=== PATIENT | male | born 1960 | race Caucasian/White ===

== ENCOUNTER 2025-03-28 11:18 | Emergency (ER) | payer MEDICARE, BC, SELFPAY ==
--- OUTSIDE RECORDS SUMMARY | 2025-03-28 11:20 | XMS_ITS | Clinical Summary ---
Author Organization [employer] [facility] Address [address] [place] [id number] Care Team Providers Care [employer]ing And St[employer] Supervisor Name Role Phone Juan Pollock MD Primary Care Provider Allergies Active Allergy Reactions Criticality Noted Date Comments Atorvastatin Other - Describe In Comment Field 10/19/2014 pain Lisinopril Other - Describe In Comment Field 11/21/2011 Increased creatinine and cough Pravastatin Other - Describe In Comment Field 11/16/2014 Pain, hyper Rosuvastatin Myalgia 09/11/2020 Medications aspirin enteric coated 81 mg tablet Take 1 tablet by mouth once daily with a meal. 0 08/24/19 14 Active cholecalciferol (VITAMIN D3) 1,000 unit tabletIndications: Vitamin D insufficiency TAKE ONE TABLET BY MOUTH EVERY DAY 90 Tablet 3 03/31/20 22 Active inhalational spacing deviceIndications: Bronchospasm For home use. 1 Each 02/22/20 25 Active amLODIPine (NORVASC) 10 mg tabletIndications: Essential hypertension Take 1 Tablet (10 mg) by mouth once daily. 90 Tablet 3 02/22/20 25 Active ezetimibe (ZETIA) 10 mg tabletIndications: Hyperlipidemia, unspecified hyperlipidemia type Take 1 Tablet (10 mg) by mouth once daily. 90 Tablet 3 02/22/20 25 Active hydroCHLOROthiazid e 25 mg tabletIndications: Essential hypertension Take 1 Tablet (25 mg) by mouth once daily. 90 Tablet 3 02/22/20 25 Active losartan (COZAAR) 100 mg tabletIndications: Benign essential HTN Take 1 Tablet (100 mg) by mouth once daily. 90 Tablet 3 02/22/20 25 Active fluticasone (50 mcg per actuation) nasal solution (FLONASE)Indicatio ns:Chronic allergic rhinitis Inhale 2 Sprays in both nostrils once daily. 16 g 3 02/22/20 25 Active albuterol HFA (PRO-AIR; VENTOLIN; PROVENTIL) 90 mcg/actuation inhalerIndications :Bronchospasm Inhale 1-2 Puffs by mouth every 4 hours if needed for Shortness Of Breath or Wheezing. 1 Each 1 03/21/20 25 Active polyethylene glycol-electrolyte (GOLYTELY) 236-22.74-6.74 -5.86 gram suspensionIndicati ons:Polyp of colon, unspecified part of colon, unspecified type Drink 6 liters the day before colonoscopy and 2 liters 6 hours before colonoscopy appointment 8000 mL 12/14/19 24 025 Discontin ued(*Medi cation adjustmen t) albuterol HFA (PRO-AIR; VENTOLIN; PROVENTIL) 90 mcg/actuation inhalerIndications :Bronchospasm Inhale 1-2 Puffs by mouth every 4 hours if needed for Shortness Of Breath or Wheezing. 1 Each 02/22/20 25 025 Discontin ued(Reord er (E-cancel not sent)) polyethylene glycol-electrolyte (GOLYTELY) 236-22.74-6.74 -5.86 gram suspensionIndicati ons:Encounter for screening colonoscopy Drink 6 liters (one bottle and one-half bottle) the day before the procedure and 2 liters (remaining one-half bottle) 6 hours prior to procedure 8000 mL 02/29/20 25 025 Discontin ued(*Med complete/ Regimen complete/ Level of care change) Active Problems Problem Noted Date Diagnosed Date Tobacco abuse 03/21/2025 Chronic kidney disease, unspecified 08/23/2013 Colon polyp 12/02/2011 Overview (03/12/2025): Colonoscopy 11/2011 polyp repeat in 5 years Colonoscopy 02/2018 polyps, repeat in 5 years Colonoscopy 02/2025 2-TA, repeat in 5 years Gallstones 10/24/2011 Obesity, unspecified 10/24/2011 Mixed hyperlipidemia 10/24/2011 Unspecified essential hypertension 10/24/2011 Resolved Problems Problem Noted Date Diagnosed Date Resolved Date Vitamin D deficiency 10/24/2011 018 Impaired fasting glucose 10/24/2011 Tobacco use disorder 09/23/2011 015 Encounters Date Type Department Care Team Description 03/28/2025 Nurse Triage [facility] [address] [place] [address] Juan Pollock MD Neurologic Problem 03/21/2025 3:45 PM CDT Office Visit [facility] [address] [place] [address] Juan Pollock MD Results (Discuss lab results ) 03/21/2025 Travel 03/08/2025 Orders Only [facility] [address] [place] [address] Juan Pollock MD 1 scan: (1-Ord) [facility] 03/08/2025 Lab Requisition [facility] [phone] Jah Perez MD 03/07/2025 1:29 PM CDT - 03/07/2025 11:59 PM CDT Hospital Encounter Jah Perez MD 03/07/2025 Orders Only [facility] [address] [facility] [address] [place] [address] Jah Perez MD <No scans attached> 03/07/2025 Surgery [facility] [address] [facility] [address] [place] [address] Jah Perez MD Colonoscopy 03/01/2025 Telephone [facility] [address] [place] [address] Juan Pollock MD Results 02/28/2025 Telephone [facility] [address] [place] [address] Jah Perez MD Appointment Reminder (Colonoscopy at [facility]) 02/27/2025 1:30 PM CDT Ancillary Procedure [facility] [address] [place] [address] 02/27/2025 Travel 02/22/2025 Orders Only [facility] [address] [place] [address] Juan Pollock MD <No scans attached> 02/21/2025 3:20 PM CDT [facility] [address] [facility] [address] Juan Pollock MD Medicare FIRST ANNUAL Visit (64 year old); Derm Problem (Spot by left elbow) 02/21/2025 Travel 02/11/2025 Refill [facility] [address] [place] [address] Juan Pollock MD Refill Request (Losartan) 01/27/2025 Refill [facility] [address] [place] [address] Juan Pollock MD Refill Request (Ezetimibe) from Last 3 Months Immunizations Immunization Administration Dates Next Due COVID-19 VACCINE SPIKEVAX (M ODERNA 50MCG/0.5ML) 12YO+ PFS 11/13/2023 COVID-19 vaccine (Pfizer-Bio NTech 30mcg/0.3mL) 12YO+ ALEJO-SUCROSE PF, MDV 12/09/2021 COVID-19 vaccine (Pfizer-Bio NTech 30mcg/0.3mL) PF, MDV 10/02/2020,09/11/2020 Influenza, IIV4 03/28/2021,03/23/2019,01/28/2018 Influenza, Inactivated IIV3 (Age 65+ Years) Preserv Free 02/21/2025 Pneumococcal Conj 20-valent (Prevnar 20) 024 Pneumococcal Poly,23-Valent (Pneumovax) 03/23/20 19 Td (Age >=7 Years) 08/22/2005 Tdap 12/17/2021,12/19/2011 Zoster (Shingrix-RZV, recombinant) 03/20/2022, Family History Medical History Relation Name Comments Diabetes Father Heart Disease Father around ag e 73. Cancer Maternal Uncle stomach cance r Diabetes Mother at 88. Heart Disease Neg. 1 No premature c ad Cancer-colon Neg. 2 Anesthesia Problem Neg. 3 Asthma Paternal Grandfather Cancer-prostate Paternal Grandfather poss ibly Relation Name Status Comments Father Maternal Uncle Mother Neg. 1 Neg. 2 Neg. 3 Paternal Grandfather Social History Tobacco Use Types Packs/Day Years Used Date Smoking Tobacco: Every Day Cigarettes 1 41.8 Started: 05/25/1983 Smokeless Tobacco: Current Chew Tobacco Cessation:Ready to Q uit: No; Counseling Given: No Alcohol Use Standard Drinks/Week Comments Yes 0 (1 standard drink = 0.6 oz pur e alcohol) rarely PHQ-2 Answer Date Recorded PHQ-2 TOTAL SCORE 1 02/21/2025 Social Connections Answer Date Recorded Do you often feel lonely or isolated from those around you? 0 02/21/2025 Alcohol Use Answer Date Recorded How often do you have a drink containing alcohol ? 1 03/21/2025 How many drinks containing a lcohol do you have on a typical day when you are drinking? 0 03/21/2025 How often do you have five or more drinks on one occasion? 0 03/21/2025 Financial Resource Strain Answer Date R ecorded Difficulty of Paying Living Expenses 3 02/21/2025 Difficulty of Paying Living Expenses Not on file 02/21/2025 Food Insecurity Answer Date Recorded Do you worry your food will run out before you are able to buy more? 1 02/21/2025 Transportation Needs Answer Date Record ed Does lack of transportation keep you from medica l appointments? 1 02/21/2025 Does lack of transportation keep you from work, meetings or getting things that you need? 1 02/21/2025 Housing Stability Answer Date Recorded What is your housing situation today? 1 02/21/2025 Utilities Answer Date Recorded Do you have trouble paying f or utilities (for example, heat, electricity, water, phone)? 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[employer] Gender Identity Not on file Sexual Orientation Not on file Obstetrics History Last Filed Vital Signs Vital Sign Reading Time Taken Comments Blood Pressure 122/65 03/21/2025 3:50 PM CDT Pulse 65 03/21/2025 3:50 PM CDT Temperature 37.1 C (98.7 F) 01/28/2018 3:44 PM CDT Respiratory Rate - - Oxygen Saturation 96% 03/21/2025 3:50 PM CDT Inhaled Oxygen Concentration - - Weight 104.1 kg (229 lb 6.4 oz) 03/21/2025 3:50 PM CDT Height 170.4 cm (5' 7.09) 02/21/2025 3:30 PM CD T Body Mass Index 35.84 02/21/2025 3:30 PM CDT Plan of Treatment Upcoming Encounters Date Type Department Care Team (Late st Contact Info) Description 03/30/2025 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 Appointment [facility] [address] [place] [address] Health Maintenance Due Date Last Done Comments RSV vaccine for adults or (1 - Risk 60-74 years 1-dose series) 2018 AAA screening age 65-74 11/20/2023 BMI (ht and wt on same day) for age 18+ 02/21/2026 02/21/2025, 11/13/2023, 12/09/2021, Additional history exists Depression screening for age 12+ 02/21/2026 02/21/2025, 08/14/2020, 03/24/2019, Additional history exists Medicare Wellness for age 65+ 02/22/2026 02/21/[address] (for lung CA) age 50-80 02/27/2026 02/27/2025 Lipids for age 45-75 02/21/2030 02/21/2025, 11/13/2023, 12/09/2021, Additional history exists Colonoscopy through age 75 03/07/203003/07, 03/19/2018, 03/19/2018, Additional history exists Tetanus booster 12/18/2031 12/17/2021, 11/23, 08/22/2005 Hepatitis C screening for age 18-79 Completed 10/18/2015 Zoster (shingles) series for age 50+ Completed 03/20/2022, 12/17/2021 Pneumococcal series for age 50+ Completed 11/13/2023, 03/23/2019 Influenza Vaccine Completed 02/21/2025, , 03/23/2019, Additional history exists Hepatitis B series for 19+ Aged Out N o longer eligible based on patient's age to complete this topic Procedures Procedure Name Priority Date/Time Associated Diagnosis Comments LAB TRACKING EVENT Routine 03/07/2025 2: 32 PM CDT PATH TISSUE EXAM Routine 03/07/2025 2:32 PM CDT COLONOSCOPY SCREENING Routine 03/07/2025 12:00 AM CDT Screening for colon cancer CT CHEST SCREENING LOW DOSE WO CONTRAST Routine 02/27/2025 1:20 PM CDT Personal history of nicotine dependence BASIC METABOLIC PANEL Routine 02/21/2025 4:47 PM CDT Controlled type 2 diabetes mellitus without complication, without long-term current use of insulin (HC) URINE ALBUMIN TO CREATININE RATIO, RANDOM Routine 02/21/2025 4:47 PM CDT Controlled type 2 diabetes mellitus without complication, without long-term current use of insulin (HC) HEMOGLOBIN A1C MONITORING (POCT) Routine 02/21/2025 4:47 PM CDT Controlled type 2 diabetes mellitus without complication, without long-term current use of insulin (HC) PSA TOTAL Routine 02/21/2025 4:47 PM CDT Prostate cancer screening LIPID PANEL W REFLEX MEASURED LDL Routine 02/21/2025 4:47 PM CDT Controlled type 2 diabetes mellitus without complication, without long-term current use of insulin (HC) ANTI HCV Routine 10/18/2015 9:01 AM CDT Need for hepatitis C screening test SURGICAL PROCEDURE (TYPE PROCEDURE DESCRIPTION BELOW) Encounter for screening colonoscopy from Last 3 Months or Most Recently Relevant to Health Maintenance Results * LAB TRACKING EVENT (03/07/2025 2:32 PM CDT) Other (Other) Client Collect / Unknown 03/07/2025 2:32 PM CDT 03/08/2025 6:27 PM CDT us Jah Perez MD LAB BILL ONLY Final Res ult [facility] [address] [place] [address], * PATH TISSUE EXAM (03/07/2025 2:32 PM CDT) Case Report Pathology Report Case: [id number] Authorizing Provider: Jah Perez MD Collected: 03/07/2025 1432 Ordering Location: [facility] Received: 03/09/2025 1924 Pathologist: Greg Melvin MD Specimens: A) - Cecal Polyp B) - Sigmoid Polyp 03/10/2025 2:34 PM CDT [facility] Final Diagnosis A) COLON, CECUM, POLYPECTOMY: 1. Tubular adenoma 2. Negative for high grade dysplasia 3. Per the colonoscopy report: a. Polyp size: 4 mm b. Resection: Complete c. Retrieval: Complete B) COLON, SIGMOID, POLYPECTOMY: 1. Tubular adenoma 2. Negative for high grade dysplasia 3. Per the colonoscopy report: a. Polyp size: 3 mm b. Resection: Complete c. Retrieval: Complete 03/10/2025 2:34 PM CDT [facility] at 1434 CDT Clinical Information Surveillance colonoscopy Colonoscopy findings: Multiple polyps, completely removed. 03/10/2025 2:34 PM CDT [facility] Gross Description A) Received in formalin are 7 birch mucosal fragments ranging from 2 mm to 5 mm in greatest dimension, which are entirely submitted in one cassette. It is labeled with the patient's name and designated cecum polyp. B) Received in formalin is a birch mucosal fragment measuring 6 mm in greatest dimension, which is entirely submitted in one cassette. It is labeled with the patient's name and designated sigmoid polyp. Roseline Blevins 03/09/2025 7:47 PM 03/10/2025 2:34 PM CDT [facility] Microscopic Description The final diagnosis is based on microscopic examination of appropriate sections of all specimens. 03/10/2025 2:34 PM CDT [facility] Additional Information Interpreted at [facility], Central Laboratory - [address], [place] [address] 03/10/2025 2:34 PM CDT [facility] Other (Cecal Polyp) 03/07/2025 2:32 PM CDT 03/09/2025 7:24 PM CDT Specimen (specimen) (Sigmoid Polyp) 03/07/2025 2:38 PM CDT 03/09/2025 7:24 PM CDT us Jah Perez MD PATHOLOGY/CYTOLOGY Final Result [facility] [address] [place] [address], * COLONOSCOPY SCREENING (03/07/2025 12:00 AM CDT) us Juan Pollock MD GI PROCEDURE ORD Final Result * CT CHEST SCREENING LOW DOSE WO CONTRAST [110413] -- Criteria: must meet ALL: Age 50-80, current smoker or quit within the last 15 years, AND 20+ pack-year history (02/27/2025 1:20 PM CDT) Anatomical Region Laterality Modality Computed Tomogra phy Impressions 02/28/2025 3:59 PM CDT Scattered less than 6 millimeters solid pulmonary nodules.. LUNG-RADS CATEGORY: 2: Benign. (<1% risk of malignancy) -Perifissural nodule(s): <10 mm -Solid nodule(s): <6 mm on baseline screening; or new nodule <4 mm -Subsolid nodule(s): <6 mm on baseline screening -Ground glass nodule(s): <30 mm; or greater than or equal to 30 mm and unchanged or slowly growing -Category 3 or 4 nodules that are unchanged for greater than or equal to 3 months RADIOLOGIST RECOMMENDATION: (Lung-RADS 1/2) Continue annual screening, if eligible, with low-dose CT chest in 12 months. Please note that all CT scans at this facility use dose modulation, iterative reconstruction and/or weight-based dosing when appropriate to reduce radiation dose to as low as reasonably achievable. Dictated by: Abdi Padgett MD @02/28/2025 8:33:53 AM CRL/djw Narrative 02/28/2025 3:59 PM CDT For Patients: As a result of the Cures Act, medical imaging exams and procedure reports are released immediately into your electronic medical record. You may view this report before your referring provider. If you have questions, please contact your health care provider. CT CHEST SCREENING LOW-DOSE WITHOUT CONTRAST, 02/27/2025 INDICATION: Lung cancer screening. History of smoking. TECHNIQUE: Low-dose lung cancer screening non-contrast CT chest. Dose reduction techniques were used. COMPARISON: None. FINDINGS: NODULES: Few less than 6 millimeters solid pulmonary nodules in bilateral lung cuellar. For example left upper lobe nodule of 3 millimeter (/43) and 2 millimeter (5/45). Right middle lobe nodule of 2 millimeter (/86). LEFT lingular nodule of 2 millimeter (/68). LUNGS AND PLEURA: A bullous lesion/cyst within the left lower lobe measuring 25 x 32 mm. No effusion or pneumothorax. Scattered linear atelectasis. MEDIASTINUM: No suspicious lymph nodes. CORONARY ARTERY CALCIFICATION: None. LIMITED UPPER ABDOMEN: No acute abnormality. Status post cholecystectomy. MUSCULOSKELETAL: Scattered degenerative changes. us Juan Pollock MD CT Final Result * (ABNORMAL) LIPID PANEL W REFLEX MEASURED LDL (02/21/2025 4:47 PM CDT) CHOLESTEROL, TOTAL 177 <200 mg/dL 02/22/2025 3:59 AM CDT [facility] TRIGLYCERIDES 198(H) <150 mg/dL 02/22/2025 3:59 AM CDT [facility] HDL CHOLESTEROL 39(L) > OR = 40 mg/dL 02/22/2025 3:59 AM CDT [facility] NON HDL CHOLESTEROL 138(H) <130 mg/dL (calc) 02/22/2025 3:59 AM CDT [facility] Comment: For patients with diabetes plus 1 major ASCVD risk factor, treating to a non-HDL-C goal of <100 mg/dL (LDL-C of <70 mg/dL) is considered a therapeutic option. CHOL/HDLC RATIO 4.5 <5.0 (calc) 02/22/2025 3:59 AM CDT [facility] LDL-CHOLESTEROL 106(H) mg/dL (calc) 02/22/2025 3:59 AM CDT [facility] Comment: Reference range: <100 Desirable range <100 mg/dL for primary prevention; <70 mg/dL for patients with CHD or diabetic patients with > or = 2 CHD risk factors. LDL-C is now calculated using the Venus calculation, which is a validated novel method providing better accuracy than the Friedewald equation in the estimation of LDL-C. Jah NEWMAN et al. VIOLETA. 2013;310(19): 5476-6048 (http://education.[employer]/faq/JLN551) Blood BLOOD SPECIMEN / Unknown [facility] Collect / Unknown 02/21/2025 4:47 PM CDT 02/21/2025 4:47 PM CDT Juan Pollock MD CHEMISTRY Final Result [facility] [employer] [facility] [address] [place] [address], * (ABNORMAL) URINE ALBUMIN TO CREATININE RATIO, RANDOM (02/21/2025 4:47 PM CDT) ALB RAND URINE 113.0 mg/L 02/22/2025 1:51 AM CDT [facility] CREATININE,URIN E 1.07 g/L 02/22/2025 1:51 AM CDT [facility] ALBUMIN TO CREATININE RATIO,RAND UR 105.6(H) <30.0 mg/g creat 02/22/2025 1:51 AM CDT [facility] Urine URINE SPECIMEN / Unknown Non-Blood / Unknown 02/21/2025 4:47 PM CDT 02/21/2025 4:47 PM CDT Narrative [facility] - 02/22/2025 1:51 AM CDT If Albumin to Creatinine Ratio is elevated, consider the following: Elevations seen with incipient nephropathy associated with diabetes mellitus or hypertension. Stress, exercise,hematuria, and urinary tract infection may also produce elevated results. If clinically indicated, confirm with 24 Hour Albumin to Creatinine Ratio. Juan Pollock MD URINE Final Result [facility] [address] [place] [address], [place] * PSA TOTAL (02/21/2025 4:47 PM CDT) PSA, TOTAL 0.98 < OR = 4.00 ng/mL 02/22/2025 6:02 AM CDT [facility] Comment: The total PSA value from this assay system is standardized against the WHO standard. The test result will be approximately 20% lower when compared to the equimolar-standardized total PSA (Scotty Miguel Angel). Comparison of serial PSA results should be interpreted with this fact in mind. This test was performed using the Siemens chemiluminescent method. Values obtained from different assay methods cannot be used interchangeably. PSA levels, regardless of value, should not be interpreted as absolute evidence of the presence or absence of disease. Blood BLOOD SPECIMEN / Unknown [facility] Collect / Unknown 02/21/2025 4:47 PM CDT 02/21/2025 4:47 PM CDT Juan Pollock MD CHEMISTRY Final Result Performing Organization Address City/[facility]/ZIP Co de Phone Number [employer] [address] [address], * (ABNORMAL) HEMOGLOBIN A1C MONITORING (POCT) (02/21/2025 4:47 PM CDT) POC HEMOGLOBIN A1C 7.0(H) <6.0 % OF TOTAL HGB 02/21/2025 5:06 PM CDT [facility] Comment: Any point of care results exhibiting inconsistency with the patient's clinical status should be repeated using a different testing method. Blood BLOOD SPECIMEN / Unknown [facility] Collect / Unknown 02/21/2025 4:47 PM CDT 02/21/2025 4:47 PM CDT Juan Pollock MD CHEMISTRY Final Result [facility] [address] [place] [address], [place] [phone] [facility] [address] [place] [address], [place] [phone] * (ABNORMAL) BASIC METABOLIC PANEL (02/21/2025 4:47 PM CDT) [facility] SODIUM 139 135 - 146 mmol/L 02/22/2025 3:59 AM CDT [facility] POTASSIUM 4.3 3.5 - 5.3 mmol/L 02/22/2025 3:59 AM CDT [facility] CARBON DIOXIDE 28 20 - 32 mmol/L 02/22/2025 3:59 AM CDT [facility] GLUCOSE 112(H) 65 - 99 mg/dL 02/22/2025 3:59 AM CDT [facility] Comment: Fasting reference interval For someone without known diabetes, a glucose value between 100 and 125 mg/dL is consistent with prediabetes and should be confirmed with a follow-up test. CALCIUM 9.3 8.6 - 10.3 mg/dL 02/22/2025 3:59 AM CDT [facility] CREATININE 1.84(H) 0.70 - 1.35 mg/dL 02/22/2025 3:59 AM CDT [facility] BUN/CREATININE RATIO 14 6 - 22 (calc) 02/22/2025 3:59 AM CDT [facility] EGFR 40(L) > OR = 60 mL/min/1. 73m2 02/22/2025 3:59 AM CDT [facility] UREA NITROGEN (BUN) 25 7 - 25 mg/dL 02/22/2025 3:59 AM CDT [facility] ELECTROLYTE BALANCE 9 7 - 17 mmol/L (calc) 02/22/2025 3:59 AM CDT [facility] CHLORIDE 102 98 - 110 mmol/L 02/22/2025 3:59 AM CDT [facility] Blood BLOOD SPECIMEN / Unknown [facility] Collect / Unknown 02/21/2025 4:47 PM CDT 02/21/2025 4:47 PM CDT us Juan Pollock MD CHEMISTRY Final Result [employer] [address] [address], [place] [phone] * ANTI HCV [29053.2] (10/18/2015 9:01 AM CDT) HEPATITIS C ANTIBODY Non-Reacti ve Non-Reacti ve 10/18/2015 6:00 PM CDT [facility] Blood specimen (specimen) BLOOD SPECIMEN / Unknown Venipuncture / Unknown 10/18/2015 9:01 AM CDT 10/18/2015 9:01 AM CDT Narrative [facility] - 10/18/2015 6:00 PM CDT Antibodies to HCV not detected; does not exclude the possibility of exposure to HCV. us Juan Pollock MD SEND OUTS Final Result [facility] 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
[2025-03-28 11:34] VITALS: BP 148/76; PULSE 78; RESP 18; TEMP 37.3; O2SAT 94; BMI 35.7
--- NOTE | 2025-03-28 11:41 | ED.GENADULT ---
HPI - General Adult General Date Seen: 03/28/25 Chief complaint: Neuro Symptoms/Altered Deficit Stated complaint: Stroke Symptom, clinic referred to ER Time Seen by Provider: 03/28/25 11:40 History of Present Illness HPI narrative: Pleasant 64-year-old gentleman referred from the clinic to the ER today. according to records through [facility] [employer],He has a past medical history of hypertension, elevated BMI, hyperlipidemia, tobacco use, chronic kidney disease, gallstones and colon polyps. According to his records through [facility] is currently on albuterol, amlodipine 10 mg daily, aspirin 81 mg daily, vitamin-D, Zetia, fluticasone nasal spray, hydrochlorothiazide 25 mg daily, losartan 100 mg daily. he had a phone call to the clinic today and was advised to come to the ER. It looks like he had a checkup with his PCP, Dr. Pollock last week on 03/21. He had been complaining of shortness of breath and chest congestion. He had been prescribed fluticasone nasal spray and recommended [id number] oral antihistamine but had not been taking that. He is a smoker. Prior CT scan showed multiple small lung nodules less than 6 males. Had a colonoscopy in February. Per patient he does have a history of high cholesterol but had been intolerant to statins so is on Zetia. He has been taking his blood pressure meds He says his current symptoms started around midnight on Thursday night. He was out in his garage. He was smoking and looking on the Internet. He was sitting in a chair and noted that he started to have a funny feeling on the right temporal side of his head. When he got up from his chair he noted that his left leg was little bit numb and tingly. He initially thought that his foot had fallen asleep while sitting in his chair. However he was able to walk, with difficulty back into the house but the numbness never really went away. He went to bed thinking that he would feel better when he woke up. He notes that when he got up to go to the bathroom overnight Thursday and Thursday morning he was having trouble walking and almost fell in a to hold himself up against the wall. He felt very dizzy like he was getting an inner ear infection (I think he means vertigo). He also noted some tingling on the side of his face. He did not really talk to anybody, including not his , on Thursday morning but then when he was talking to her Thursday after lunch today noted that he had a left facial droop and slurred speech. He actually says that his walking got quite a bit better yesterday on Thursday. His is been encouraging to come to the doctor sent symptoms were noted on Thursday but he has been refusing. They finally called the [facility] clinic this morning and were encouraged to come here. Here in the ER today he says that overall he is doing better than he was on Thursday. Still some slurred speech in subtle facial droop and a little bit numbness on left side of his face. His left arm and leg are better but still feel a little bit tingly. He is able to walk better. Related Data Home Medications ?Medication ?Instructions ?Recorded ?Confirmed albuterol sulfate 90 mcg/actuation inhalation 03/28/25 aerosol inhaler amlodipine 10 mg tablet 10 mg PO DAILY 03/28/25 03/28/25 ezetimibe 10 mg tablet 10 mg PO DAILY 03/28/25 03/28/25 hydrochlorothiazide 25 mg tablet 25 mg PO DAILY 03/28/25 03/28/25 losartan 100 mg tablet 100 mg PO DAILY 03/28/25 03/28/25 Previous Rx's ?Medication ?Instructions ?Recorded clopidogrel 75 mg tablet (Plavix) 75 mg PO DAILY #30 tabs 03/28/25 Allergies Allergy/AdvReac Type Severity Reaction Status Date / Time lisinopril AdvReac Intermediate Verified 03/28/25 11:30 [id number] Reductase AdvReac Intermediate Muscle Pain Verified 03/28/25 11:30 Inhibitor Exam Narrative: Exam Narrative: Constitutional: Appears well-developed and well-nourished. Alert. Conversant but speech is slightly slurred. Non toxic. HENT: Head: Atraumatic. Nose: Nose normal. Mouth/Throat: Oral mucosa is clear and moist. no trismus. Pharynx normal. Tonsils symmetric. No tonsillar enlargement, erythema, or exudate. Eyes: Conjunctivae normal. EOM normal. Pupils equal, round, and reactive to light. No scleral icterus. Neck: Normal range of motion. Neck supple. No tracheal deviation present. Cardiovascular: Normal rate, regular rhythm. No gallop. No friction rub. No murmur heard. Symmetric radial artery pulses Pulmonary/Chest: Effort normal. No stridor. No respiratory distress. No wheezes. No rales. No rhonchi . No tenderness. Abdominal: Soft. Bowel sounds normal. No distension. No mass. No tenderness. No rebound. No guarding. Musculoskeletal: RUE: Normal range of motion. No tenderness. No deformity LUE: Normal range of motion. No tenderness. No deformity RLE: Normal range of motion. No edema. No tenderness. No deformity LLE: Normal range of motion. No edema. No tenderness. No deformity Lymph: No cervical adenopathy. Neurological: Mental status normal. Attention normal. Alert and oriented x3. GCS 15. Memory normal. Speech fluent. Cognition normal. Cranial Nerves intact II-XII except I did not formally test gag or visual acuity. EOMI. Palate elevates symmetrically and tongue protrudes in the midline. Speech is slightly slurred. Strength: 5/5 trapezius on the right and left 5/5 deltoid on the right and left 5/5 biceps on the right and left 5/5 triceps on the right and left 5/5 flag car driver on the right 5/5 thumb opposition and finger abduction on the right but it is 4+/5 on the left. Rod Cup Filler is 4+/5 on the left. Subtle tingly paresthesias affecting the left C5 and C7 dermatomes but he says his left middle finger feels symmetric with the right. Also subtle tingly paresthesias left chin and left clavicle and left deltoid. He says his cheek and forehead feels symmetric 5/5 hip flexors (L3) on the right and left 5/5 quadriceps (L4) on the right and left 5/5 tibialis anterior on the right and left 5/5 EHL (L5) on the right and left 5/5 gastrocnemius (S1) on the right and left 5/5 hamstring on the right and left Sensation intact to light touch in both upper extremities (C4-T1) Sensation intact to light touch in Both lower extremities (L4-S1). Finger to nose and coordination normal. Gait normal out into the hallway and back. No ataxia. No footdrop. Skin: Skin is warm and dry. No rash noted. No pallor. Normal capillary refill. Psychiatric: Normal mood. Normal affect. Const: Vital Signs, click to edit/add: Vital Signs - 24 hr 03/28/25 11:34 03/28/25 13:13 03/28/25 13:15 Temperature 99.1 F Pulse Rate Pulse Rate [Pulse Oximeter] 78 Respiratory Rate 18 17 16 Blood Pressure Blood Pressure [Ri ght Upper Arm] 148/76 H Pulse Oximetry 94 Oxygen Delivery Me thod Room Air 03/28/25 13:45 03/28/25 13:54 Temperature Pulse Rate 63 Pulse Rate [Pulse Oximeter] Respiratory Rate 18 18 Blood Pressure 152/74 H Blood Pressure [Ri ght Upper Arm] Pulse Oximetry 98 Oxygen Delivery Me thod Course Vital Signs Vital signs: Initial Vital Signs Temperature 99.1 F 03/28/25 11:34 Temperature Source Temporal Artery Scan 03/28/25 11:34 Pulse Rate 78 03/28/25 11:34 Respiratory Rate 18 03/28/25 11:34 Blood Pressure 148/76 H 03/28/25 11:34 Blood Pressure Mean 100 03/28/25 11:34 Pulse Oximetry 94 03/28/25 11:34 Oxygen Delivery Method Room Air 03/28/25 11:34 Vital Signs Temperature 99.1 F 03/28/25 11:34 Pulse Rate 78 03/28/25 11:34 Respiratory Rate 18 03/28/25 11:34 Blood Pressure 148/76 H 03/28/25 11:34 Pulse Oximetry 94 03/28/25 11:34 Oxygen Delivery Method Room Air 03/28/25 11:34 Temperature 99.1 F 03/28/25 11:34 Pulse Rate 63 03/28/25 13:54 Respiratory Rate 18 03/28/25 13:54 Blood Pressure 152/74 H 03/28/25 13:54 Pulse Oximetry 98 03/28/25 13:54 Oxygen Delivery Method Room Air 03/28/25 11:34 Medical Decision Making MDM Narrative Medical decision making narrative: Very pleasant 64-year-old gentleman presenting to the ER today with his could concern for neurologic symptoms that 1st started 3 days ago around midnight Saturday night. It sounds like his initial symptoms included left facial droop, left arm and leg weakness, and difficulty walking along with slurred speech. He says that most of his symptoms are getting better in his walking is better today and his strength in his left leg is returning. He still has little bit of numbness and weakness in left arm and leg is still has a little bit of slurred speech and subtle left facial droop. He finally came to the ER today, because his and PCP encouraged him. Differential here is broad including stroke, Wallace's palsy, partial seizure, intracranial hemorrhage, among others. Clinical evaluation and MRI imaging confirmed the presence of an acute right pontine stroke. This was discussed and evaluated by Stroke Neurology, Dr. Allan from [facility]. At this point platelet count is normal. EKG shows sinus rhythm. Blood pressure is mildly elevated but we are allowing permissive hypertension. After evaluation, Neurology recommends outpatient management with dual anti-platelet therapy. Aspirin 81 mg and Plavix 75 mg. No Plavix load today. Since the patient is already 3 days out from his event, neurology does not feel he would benefit from admission or observation. CT angiogram of his head neck do show 80% stenosis of his left carotid artery. This is not the anatomic vesicle that would be feeding his angelina so is likely and asymptomatic incidental finding. Stroke Neurology recommends outpatient follow-up with vascular surgery. We did contact vascular surgery through [facility] in the agree the patient is appropriate for a nonemergent clinic follow-up for this carotid stenosis. He will likely, eventually need surgery. Discussed the plan of care with the patient in detail. Patient is verbalized understandings. They understand the need for follow-up with PCP for ongoing risk factor evaluation and modification including cholesterol, blood pressure, diversional therapist's assistant, echo. They also understand the need for follow-up with vascular surgery. Encouraged to return to the ER right away if any diff new neurologic symptoms or changes develop. Lab Data Labs: Lab Results 03/28/25 03/28/25 03/28/25 Range/Units 12:07 12:20 12:46 WBC 11.35 H (4.50-11.00) K/uL RBC 4.44 (4.30-5.90) m/uL Hgb 14.4 (13.5-17.5) gm/dL Hct 43.4 (37.0-53.0) % MCV 98 (80-100) fL MCH 32 (26-34) pg MCHC 33 (32-36) gm/dL RDW Coeff of Risa 14.0 (11.5-15.5) % Plt Count 262 (140-440) K/uL Neut % (Auto) 79.4 H (42.0-72.0) % Lymph % (Auto) 13.5 L (20-44) % Real % (Auto) 5.7 (0.0-11.0) % Eos % (Auto) 0.8 (0.0-7.0) % Baso % (Auto) 0.3 (0.0-3.0) % Neut # (Auto) 9.00 H (1.7-7.0) K/uL Lymph # (Auto) 1.50 (0.90-2.90) K/uL Real # (Auto) 0.60 (0.00-0.90) K/UL Eos # (Auto) 0.10 (0.00-0.50) K/uL Baso # (Auto) 0.00 (0.00-0.30) K/uL Abs Immat Gran (auto) 0.00 (0.00-0.30) K/uL Imm/Tot Granulo (auto) 0.3 % INR 0.93 (0.91-1.10) Sodium 136 (135-149) mmol/L Potassium 3.9 (3.6-5.1) mmol/L Chloride 105 (96-114) mmol/L Carbon Dioxide 24 (20-32) mmol/L Anion Gap 7 (7-15) mEq/L BUN 30 (7-30) mg/dL Creatinine 1.7 H (0.5-1.5) mg/dL Estimated Creat Clear 39.96 Estimated GFR 44 ml/min Glucose 152 H (60-115) mg/dL Lactate 0.9 (0.5-1.9) mmol/L Calcium 9.3 (8.4-10.6) mg/dL Troponin I < 0.01 (0.01-0.04) ng/mL Urine Color Yellow (Yellow) Urine Appearance Clear (Clear) Urine pH 5.5 (5.0-8.5) Ur Specific [place] 1.010 (1.000-1.030) Urine Protein Negative (Negative) Urine Glucose (UA) Negative (Negative) Urine Ketones Negative (Negative) Urine Blood Negative (Negative) Urine Nitrite Negative (Negative) Urine Bilirubin Negative (Negative) Urine Urobilinogen 0.2 (0.2-1.0) Ur Leukocyte Esterase Negative (Negative) Urine RBC 0-2 (0-2) Urine WBC 0-2 (0-5) Ur Squamous Epith Cells None (None-Few) Urine Bacteria None (None) POC Creatinine 0.0 L (0.6-1.3) mg/dl Imaging Data MRI - head: Attestation: I have reviewed the pertinent imaging results. My impression: I received a phone call from [facility] (radiology) about the MRI results at 1:09 p.m.. They confirm an acute pontine stroke. Radiologist's impression: Impression: 1. Small acute/subacute infarct involving the right paramedian angelina. No hemorrhagic transformation. CTA Neck: Attestation: I have reviewed the pertinent imaging results. Radiologist's impression: IMPRESSION: No acute intracranial abnormality at CTA. Severe proximal left ICA stenosis, 80% by NASCET. CTA head: Attestation: I have reviewed the pertinent imaging results. Radiologist's impression: IMPRESSION: No acute intracranial abnormality at CTA. Severe proximal left ICA stenosis, 80% by NASCET. ECG Data Attestation: I personally reviewed and interpreted this ECG as follows: Interpretation: Normal sinus rhythm Rate 69 [place] interval 140. No delta waves Normal QRS axis. No pathologic Q-waves. Incomplete right bundle branch block pattern QRS duration [address] segment elevation or depression QTC 392, QTC 420 Discharge Plan Discharge Clinical Impression: Right pontine CVA Patient Disposition: Home, Self-Care Additional Instructions: As we discussed, your MRI shows that you have had a stroke. It is a small stroke affecting an important part of your brain called the angelina. It is very important for you to do further workup to figure out why this stroke happened and to make sure we minimize your risk of having any strokes in the future. 1. Continue on all of your current medications including your blood pressure and cholesterol medications. 2. Continue on baby aspirin. I want you to start a 2nd blood thinner medication called Plavix (generic name clopidogrel) 75 mg once daily. When you follow-up with your regular doctor, they will help you determine how long you should stay on both of these medications. 3. Follow-up with your regular doctor at the [facility] clinic as soon as possible. Your doctor will help you check your blood pressure and cholesterol to make sure your on the right medications to keep those risk factors under control Your doctor will help you quit smoking Your doctor will arrange a heart monitor to check you for an arrhythmia called atrial fibrillation Your doctor will help to arrange an echocardiogram to check your heart valves and muscle 4. Please follow-up with the vascular surgery clinic within the next few weeks. Call [phone] to set up that appointment If you have any new concerning symptoms or any concern for stroke, please come back to the ER right away. Prescriptions: New clopidogrel [Plavix] 75 mg tablet 75 mg PO DAILY Qty: 30 2RF No Action amlodipine 10 mg tablet 10 mg PO DAILY hydrochlorothiazide 25 mg tablet 25 mg PO DAILY albuterol sulfate 90 mcg/actuation HFA aerosol inhaler inhalation losartan 100 mg tablet 100 mg PO DAILY ezetimibe 10 mg tablet 10 mg PO DAILY Follow Up/Referrals: Juan Pollock MD [Primary Care Provider, Family Practice] Stand Alone Forms: [employer] Info Instructions
--- NOTE | 2025-03-28 12:05 | CRLHL7_ITS ---
For Patients: As a result of the Century Cures Act, medical imaging exams and procedure reports are released immediately into your electronic medical record. You may view this report before your referring provider. If you have questions, please contact your health care provider. Indication: Left facial droop, arm/leg weakness, slurred speech Technique: Multiplanar, multisequence MRI of the brain obtained without contrast. Comparison: None. Findings: Small area of FLAIR hyperintensity and mild restricted diffusion at the paramedian aspect of the right brie angelina, compatible with evolving infarct. No hemorrhagic transformation, midline shift, hydrocephalus or herniation. No other abnormal restricted diffusion. Unremarkable white matter signal. Preserved major intracranial arterial flow voids. No suspicious bone marrow lesion. Scattered paranasal sinus mucosal thickening without air-fluid level or significant mastoid effusion. Unremarkable orbits. Impression: 1. Small acute/subacute infarct involving the right paramedian angelina. No hemorrhagic transformation. Dictated by Smiley Gaffney MD @ 03/28/2025 1:07:14 PM (Electronically Signed)
--- NOTE | 2025-03-28 12:07 | CRLHL7_ITS ---
For Patients: As a result of the Century Cures Act, medical imaging exams and procedure reports are released immediately into your electronic medical record. You may view this report before your referring provider. If you have questions, please contact your health care provider. INDICATION: Acute stroke, left-sided weakness. TECHNIQUE: CTA head using intravenous contrast with bolus tracking, 3D angiographic rendering using maximum intensity projection (MIP) and images permanently archived. CTA neck using intravenous contrast with bolus tracking, 3D angiographic rendering using maximum intensity projection (MIP) and images permanently archived. FINDINGS: CTA head: There is scattered intracranial atherosclerotic disease. There is normal opacification of the intracranial vasculature. There is no large vessel occlusion or significant intracranial stenosis. No aneurysm is identified. CTA neck: There is atherosclerotic plaque in the proximal left ICA resulting in a severe stenosis, 80% by NASCET. There is no significant right carotid artery stenosis or dissection. There is no significant vertebral artery stenosis or dissection. Degenerative changes are noted in the cervical spine. IMPRESSION: No acute intracranial abnormality at CTA. Severe proximal left ICA stenosis, 80% by NASCET. Please note that all CT scans at this facility use dose modulation, iterative reconstruction, and/or weight-based dosing when appropriate to reduce radiation dose to as low as reasonably achievable. Dictated by Felipe Chaudhary MD @ 03/28/2025 2:23:52 PM (Electronically Signed)
[2025-03-28 12:27] LABS: Hematocrit* 43.4 % (37.0-53.0); Hemoglobin* 14.4 gm/dL (13.5-17.5); Immature Granulocytes Pct Auto 0.3 %; Lactate* 0.9 mmol/L (0.5-1.9); Mean Corpuscular HGB Conc 33 gm/dL (32-36); Mean Corpuscular Hemoglobin 32 pg (26-34); Mean Corpuscular Volume 98 fL (80-100); RDW Coefficient of Variation % 14.0 % (11.5-15.5); Red Blood Count* 4.44 m/uL (4.30-5.90); White Blood Count* 11.35 K/uL (4.50-11.00)
[2025-03-28 12:28] LABS: Immature Granulocytes Abs Auto 0.00 K/uL (0.00-0.30); Lymphocytes Absolute Auto 1.50 K/uL (0.90-2.90); Slide Review Reflex No
[2025-03-28 12:41] LABS: Chloride* 105 mmol/L (96-114)
[2025-03-28 12:42] LABS: Potassium* 3.9 mmol/L (3.6-5.1); Sodium* 136 mmol/L (135-149)
[2025-03-28 12:44] LABS: INR 0.93 (0.91-1.10); Prothrombin Time 13.2 Seconds
[2025-03-28 12:45] LABS: Anion Gap 7 mEq/L (7-15); Blood Urea Nitrogen* 30 mg/dL (7-30); Calcium* 9.3 mg/dL (8.4-10.6); Carbon Dioxide* 24 mmol/L (20-32); Creatinine* 1.7 mg/dL (0.5-1.5); Est. Creatinine Clearance* 39.96; Estimated Glomerular Filt Rate 44 ml/min; Glucose* 152 mg/dL (60-115)
[2025-03-28 12:47] LABS: Creatinine, Point-of-Care* 0.0 mg/dl (0.6-1.3)
[2025-03-28 13:13] VITALS: RESP 17
[2025-03-28 13:15] VITALS: RESP 16
[2025-03-28 13:20] LABS: Appearance Urine Clear (Clear)
[2025-03-28 13:45] VITALS: RESP 18
[2025-03-28 13:54] VITALS: BP 152/74; PULSE 63; RESP 18; O2SAT 98
== END 2025-03-28 15:50 | disposition home or self-care (01) ==
PROVIDERS: Emergency Provider Emergency Medicine; PCP Family Medicine
DX: I63.89 Other cerebral infarction (principal); R47.81 Slurred speech; R29.810 Facial weakness; R20.2 Paresthesia of skin; F17.210 Nicotine dependence, cigarettes, uncomplicated
CPT/HCPCS: 36415; 70496; 70498; 70551; 80048; 81001; 82565; 83605; 84484; 85025; 85610; 93005; 99284; 99285; Q9967